=== PATIENT | female | born 1950 | race Caucasian/White ===

== ENCOUNTER 2025-05-31 06:30 | Day surgery (SDC) | payer MEDICARE, OTHER ==
[~2025-05-31] VITALS: Ht 160 cm; Wt 61.8 kg
[2025-05-31] MEDS: SODIUM CHLORIDE 0.9% 1,000 ML IV ONE (07:46)
[2025-05-31] MEDS ORDERED: ATOR-2 PO (08:07)
[2025-05-31] MEDS ORDERED: FLUT1BLS15 IH (08:07)
[2025-05-31] MEDS ORDERED: ASPI-1450 PO (08:07)
[2025-05-31] MEDS ORDERED: [UNRECOGNIZED DRUG - CODE] PO (08:07)
[2025-05-31] MEDS ORDERED: METF-81 PO (08:07)
[2025-05-31] MEDS ORDERED: ALBU18HF12 IH (08:07)
[2025-05-31] MEDS ORDERED: CHOL200074 PO (08:07)
[2025-05-31] MEDS ORDERED: CARV3.1231 PO (08:07)
[2025-05-31] MEDS ORDERED: MIDAZOLAM HCL 2 MG/2 ML VIAL ONE (08:26)
[2025-05-31] MEDS ORDERED: FentaNYL CITRATE PF 100 MCG/2 ML VIAL ONE (08:26)
[2025-05-31 08:31] LABS: GLUCOMETER DEV NAME(LOC) SDS.; GLUCOSE,POINT OF CARE 137 MG/DL (70-110)
[2025-05-31 09:29] VITALS: PULSE 115; RESP 21; O2SAT 97
[2025-05-31] MEDS ORDERED: BENZOCAINE 20% 50 MCG/SPRAY 57 GM ONE (12:00)
[2025-05-31] MEDS ORDERED: LIDOCAINE 2% 11 ML JELLY ONE (12:00)
[2025-05-31] MEDS ORDERED: LIDOCAINE 4% 50 ML SOLUTION ONE (12:00)
[2025-05-31] MEDS ORDERED: ALBUTEROL SULFATE 2.5 MG/0.5 ML NEB SOLUTION NEB ONE (12:00)
== END 2025-05-31 12:55 | disposition home or self-care (01) ==
LOC: SURGERY 06:30
PROVIDERS: ATTEND Internal Medicine Critical Care Medicine
DX: R05.3 Chronic cough (principal); R06.2 Wheezing; R49.0 Dysphonia; R04.2 Hemoptysis; R91.8 Other nonspecific abnormal finding of lung field; J38.4 Edema of larynx; B37.0 Candidal stomatitis; I10 Essential (primary) hypertension; I25.119 Atherosclerotic heart disease of native coronary artery with unspecified angina pectoris; E78.00 Pure hypercholesterolemia, unspecified; J44.9 Chronic obstructive pulmonary disease, unspecified; K21.9 Gastro-esophageal reflux disease without esophagitis; M19.90 Unspecified osteoarthritis, unspecified site; F17.210 Nicotine dependence, cigarettes, uncomplicated; Z79.01 Long term (current) use of anticoagulants; Z79.82 Long term (current) use of aspirin; Z79.84 Long term (current) use of oral hypoglycemic drugs; Z79.899 Other long term (current) drug therapy; Z90.89 Acquired absence of other organs; Z95.5 Presence of coronary angioplasty implant and graft; Z98.51 Tubal ligation status; Z98.890 Other specified postprocedural states
CPT/HCPCS: 31623; 82962; 87206; 87101; 87220; 87070; 31624; 71045; 87015; J3010; J2250; J2919; J7030; 88108; J7613; Z7610